=== PATIENT | female | born 1990 | race Caucasian/White ===

== ENCOUNTER 2019-02-01 19:23 | Emergency (ER) | payer SELFPAY ==
[~2019-02-01] VITALS: Ht 170.2 cm; Wt 68.0 kg
[~2019-02-01 19:23] MED LIST: VIC PO
[2019-02-01 19:28] VITALS: BP 96/68
[2019-02-01] MEDS ORDERED: NACL 0.9% 1,000 ML IV SCH (19:41)
[2019-02-01] MEDS ORDERED: KETOROLAC 30 MG/ML VIAL IVP ONE (19:45)
[2019-02-01] MEDS ORDERED: ONDANSETRON 4 MG/2 ML VIAL IVP ONE (19:45)
[2019-02-01 20:06] LABS: BASOPHILS % (AUTO) 0.2 % (0.0-2.0); EOSINOPHILS % (AUTO) 0.4 % (0.0-4.0); HEMATOCRIT 46.1 % (36-48); HEMOGLOBIN 15.5 g/dL (12.0-16.0); LYMPHOCYTES # (AUTO) 0.6 K/uL (2.5-16.5); LYMPHOCYTES % (AUTO) 9.6 % (20.5-51.1); MEAN CORPUSCULAR HEMOGLOBIN 30 pg (27-31); MEAN CORPUSCULAR HGB CONC 34 g/dL (33-37); MEAN CORPUSCULAR VOLUME 89.8 fL (80-94); MONOCYTES # (AUTO) 0.4 K/uL (0.8-1.0); MONOCYTES % (AUTO) 5.8 % (1.7-9.3); NEUTROPHILS # (AUTO) 5.3 K/uL (1.8-7.7); PLATELET COUNT (AUTO) 199 K/uL (140-450); RED BLOOD CELL COUNT(AUTO) 5.13 MIL/uL (4.20-5.40); RED CELL DISTRIBUTION WIDTH 12.4 % (11.6-13.7); WHITE BLOOD COUNT (AUTO) 6.4 K/uL (4.8-10.8)
--- NOTE | 2019-02-01 20:11 | NUR ---
PT PRESENTS TO ED WITH C/O ABD PAIN, N/V/D, AND BODY ACHES X 1 DAY. PT STATES SHE HAD TACO OLEA AT 1400 YESTERDAY AND HAD BEGAN VOMITING AT 1800 YESTERDAY. PT BELIEVES THAT SHE MAY BE EXPERIENCING FOOD POISIONING. PT STATES THAT ABD PAIN IS 3/10 AT THIS TIME. PTS SKIN IS PINK, WARM, AND DRY. PT PRESENTS WITH A CLEAR SPEECH AND IS CONVERSING APPROPRIATELY. PT IS POSITIONED FOR COMFORT, HOB ELEVATED, BED RAIL UP X 1. ER MD AWARE OF PT STATUS. JORGE ALBERTO HX: DENIES RX: DENIES
--- NOTE | 2019-02-01 20:17 | NUR ---
Dr. Sifuentes examining patient.
[2019-02-01 20:24] LABS: ALBUMIN 4.2 g/dL (3.4-5.0); CREATININE 0.6 mg/dL (0.6-1.3); TOTAL BILIRUBIN 0.6 mg/dL (0.0-1.0)
--- NOTE | 2019-02-01 21:01 | NUR ---
Patient discharged with v/s stable. Written and verbal after care instructions given and explained. Patient alert, oriented and verbalized understanding of instructions. Ambulatory with steady gait. All questions addressed prior to discharge. ID band removed. Patient advised to follow up with PMD. Rx of ZOFRAN, NORCO, IMMODIUM, AND MOTRIN given. Patient educated on indication of medication including possible reaction and side effects. Opportunity to ask questions provided and answered.
[2019-02-01 21:02] VITALS: BP 96/68
== END 2019-02-01 21:01 | disposition home or self-care (01) ==
LOC: MED 19:23
DX: R10.13 Epigastric pain (principal); R11.2 Nausea with vomiting, unspecified; R19.7 Diarrhea, unspecified; R42 Dizziness and giddiness; Z79.899 Other long term (current) drug therapy
CPT/HCPCS: 36415; 80053; 81002; 81025; 83690; 85025; 96361; 96374; 96375; 99283; J1885; J2405; J7030

== ENCOUNTER 2020-09-25 10:53 | Emergency (ER) | payer MEDICAID ==
[~2020-09-25] VITALS: Ht 170.2 cm; Wt 67.6 kg
[2020-09-25 10:56] VITALS: BP 108/73
--- NOTE | 2020-09-25 11:02 | NUR ---
Patient ambulated with stedy gait to bed 5 Addendum: 09/25/20 at 1102 by JAVIER Patienta ambulated with steady gait to bed 5.
--- NOTE | 2020-09-25 11:04 | NUR ---
Dr. Camejo at bedside evaluating patient
--- NOTE | 2020-09-25 11:09 | NUR ---
29 YEAR OLD FEMALE COMPLAINS OF RIGHT SHOULDER PAIN. PT STATES THAT SHE HAS BEEN WORKING OUT MORE FREQUENTLY AND THAT DENIES ANY TRAUMA. PT STATES PAIN IN RIGHT SHOULDER ALSO ASSOCIATED WITH RIGHT HAND TINGLING. RADIAL PULSE +2, CAP REFILL <3 SEC. PT AOX4, BREATHING EVEN AND UNLABORED, SKIN WARM AND DRY. BED IN LOWEST POSITION, LOCKED, BED RAIL UPX1. PMH - DENIES ALLERGIES - NKA
[2020-09-25] MEDS ORDERED: LIDOCAINE MPF 1% 10 MG/ML VIAL INJ ONE (11:10)
[2020-09-25] MEDS ORDERED: NAPR-1704 PO (11:50)
[2020-09-25 11:55] VITALS: BP 108/73
--- NOTE | 2020-09-25 11:55 | NUR ---
Patient discharged with v/s stable. Written and verbal after care instructions about muscle cramps and spasms given and explained. Patient alert, oriented and verbalized understanding of instructions. Ambulatory with steady gait. All questions addressed prior to discharge. ID band removed. Patient advised to follow up with PMD. Rx of naprosyn given. Patient educated on indication of medication including possible reaction and side effects. Opportunity to ask questions provided and answered.
== END 2020-09-25 11:55 | disposition home or self-care (01) ==
LOC: MED 10:53
DX: M62.830 Muscle spasm of back (principal); M25.511 Pain in right shoulder; Z79.899 Other long term (current) drug therapy
CPT/HCPCS: 99282; J2001